=== PATIENT | female | born 2000 | race Caucasian/White ===

== ENCOUNTER 2020-03-20 08:56 | Outpatient (REF) | payer OTHER, SELFPAY | END 2020-03-20 08:57 | disposition home or self-care (01) | LOC: HO.SCI 08:56 | DX: Z13.89 Encounter for screening for other disorder (principal) ==

== ENCOUNTER 2020-03-25 13:01 | Outpatient (REF) | payer BC, SELFPAY ==
--- NOTE | 2020-03-25 13:07 | US_ITS ---
EXAMINATION: US PELVIS CLINICAL INFORMATION: Pelvic pain. COMPARISON: None TECHNIQUE: Ultrasound of the pelvis is performed using both transabdominal and transvaginal transducers along with Doppler. Unable to perform transvaginal ultrasound due to patient's young age. FINDINGS: Uterus: The uterus is anteverted and measures 8.0 cm in length, 3.8 cm in AP and 4.9 cm in transverse dimension. There is lobulation visualized in the fundal region suspicious for a bicornuate or arcuate uterus. The double wall endometrial thickness is 0.93 cm. The uterus is smooth in contour and has normal myometrial echogenicity. No visible fibroid. Adnexa: Both ovaries are visualized. There is normal color flow to the adnexa. There is no ovarian torsion. There is no pelvic ascites or fluid collection. Right ovary measures 4.0 x 2.1 x 2.0 cm and volume 8.4 mL. It appears unremarkable. Left ovary is not visualized. There is no free fluid in the cul-de-sac. 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 The right ovary is unremarkable. The left ovary is not seen.
== END 2020-03-25 13:02 | disposition home or self-care (01) ==
LOC: HO.US 13:01
PROVIDERS: PCP Pediatrics; Visit Provider Obstetrics & Gynecology Gynecology
DX: R10.2 Pelvic and perineal pain (principal)
CPT/HCPCS: 76856

== ENCOUNTER 2021-01-19 14:22 | Emergency (ER) | payer BC, SELFPAY ==
--- NOTE | ~2021-01-19 | CT_ITS ---
EXAMINATION: CT ABDOMEN AND PELVIS WITH CONTRAST CLINICAL INFORMATION: Right lower quadrant pain COMPARISON: Previous pelvic ultrasound March 2020 TECHNIQUE: Multidetector volumetric images were obtained from the superior aspect of the liver through the pubic symphysis following administration 85 mL of Omnipaque 350 intravenous contrast. Sagittal and coronal reformatted images were obtained on the technologist's workstation. Oral contrast: Yes This CT examination was performed using dose optimization techniques as appropriate, variously including the following: *Automated exposure control *Adjustment of mA and/or kV according to patient size (this includes techniques or standardized protocols for targeted exams where dose is matched to indication/reason for exam; i.e. extremities or head) *Use of iterative reconstruction technique DLP: 289 mGy-cm FINDINGS: LUNG BASES: The visualized lung bases are unremarkable. LIVER, GALLBLADDER, AND BILIARY TREE: The liver is normal in size, shape, and attenuation. No focal hepatic lesion or biliary ductal dilatation is present. The gallbladder is unremarkable with no evidence of radiopaque gallstones, gallbladder wall thickening, or obvious pericholecystic inflammatory changes. PANCREAS: Unremarkable. SPLEEN: Unremarkable. ADRENAL GLANDS: Unremarkable. KIDNEYS AND URETERS: The kidneys are normal in size, shape, and attenuation. No hydronephrosis, hydroureter, or calculi seen. There is question of peripelvic cysts in the upper pole the left kidney versus upper pole calyceal dilatation. BLADDER: Unremarkable. GASTROINTESTINAL TRACT: There is stool throughout the colon suggestive of mild constipation. There is question of mild wall thickening of the distal colon and rectum or proctocolitis. Small and large bowel is otherwise unremarkable. The appendix is unremarkable. ABDOMINAL WALL: No significant hernia is appreciated. LYMPH NODES: Normal. VASCULAR: Unremarkable. PELVIC VISCERA: Unremarkable. OSSEOUS STRUCTURES: Unremarkable. CT/CT abdomen pelvis w con IMPRESSION: Mild constipation. Question mild wall thickening of the distal colon and rectum/proctocolitis. Left renal peripelvic cysts versus calyceal dilatation. Fleischner guidelines were followed.
[2021-01-19 15:12] VITALS: BP 115/73; PULSE 89; RESP 18; TEMP 36.5; O2SAT 98; BMI 16.9
[2021-01-19 16:30] LABS: MANUAL DIFF FLAG NO
[2021-01-19 16:33] LABS: Basophils Percent Auto 0.3 % (0-2); Eosinophils Absolute Auto 0.1 X10*3/uL (0.0-0.4); Eosinophils Percent Auto 0.7 % (0-4); Hematocrit 37.2 % (37.0-47.0); Hemoglobin 12.2 g/dl (12.0-16.0); Imm Gran Abs Auto 0.03 X10*3/uL (0.00-0.03); Imm Gran Pct Auto 0.3 % (0.0-0.4); Lymphocytes Absolute Auto 2.4 X10*3/uL (1.2-4.9); Lymphocytes Percent Auto 25.7 % (20-40); Mean Corpuscular HGB Conc 32.8 g/dl (31.0-35.0); Mean Corpuscular Hemoglobin 31.2 pg (27.0-33.0); Mean Corpuscular Volume 95.1 fL (80.0-98.0); Mean Platelet Volume 10.8 fL (9.4-12.3); Monocytes Absolute Auto 0.7 X10*3/uL (0.1-1.2); Monocytes Percent Auto 7.1 % (2-11); Neutrophils Percent Auto 65.9 % (45-73); Platelet Count 283 X10*3/uL (160-400); Red Blood Count 3.91 X10*6/uL (4.20-5.50); Red Cell Distribution Width 12.6 % (11.0-16.0); White Blood Count 9.2 X10*3/uL (4.8-10.8)
[2021-01-19 16:48] LABS: Appearance Urine CLOUDY; Color Urine YELLOW; Glucose Urine UA NEG (NEG); Leukocyte Esterase Urine 3+ (NEG); Nitrite Urine NEG (NEG); Specific Gravity - Urine 1.015 (1.005-1.025); UACC Culture Trigger YES; Urine Blood NEG (NEG); Urine Ketones NEG (NEG); Urine Protein NEG (NEG-TRACE)
[2021-01-19 16:49] LABS: UPreg QC Valid YES; Urine Pregnancy NEGATIVE (NEGATIVE)
--- NOTE | 2021-01-19 16:53 | ED_ITS ---
HPI - Abdominal Pain General Chief Complaint: Abdominal Pain Stated Complaint: abd pain Time Seen by Provider: 01/19/21 16:12 Source: patient, family and old records reviewed History of Present Illness HPI narrative: Lower abd pain since yesterday, getting progressively worse. Diarrhea yesterday Pain greatest in RLQ. Rad to back Hx of dysmenorrhea. Remote history of frequent UTI's as a child/ adolescent Nausea, no vomiting LMP 1 week ago. No recent changes in diet/activity OCP for dysmenorrhea Related Data Previous Rx's Medication Instructions Recorded amoxicillin 250 mg-potassium 10 ml PO BID #200 ml 01/19/21 clavulanate 62.5 mg/5 mL oral suspension (Augmentin) Allergies Allergy/AdvReac Type Severity Reaction Status Date / Time No Known Allergies Allergy Verified 01/19/21 15:12 Review of Systems Constitutional: Denies fever(s), Denies malaise and Denies weakness Cardiovascular: Denies chest pain and Denies dyspnea Respiratory: Denies cough and Denies dyspnea Gastrointestinal: Reports as per HPI, Denies heartburn, Reports diarrhea, Reports nausea and Denies vomiting Genitourinary: Denies difficulty voiding, Denies dysuria and Denies flank pain Comments: low back pain Comments: no rash Denies weakness Physical Exam Vital Signs: Vital Signs: Last Vital Signs Temp 97.4 F 01/19/21 19:16 Pulse 83 01/19/21 19:16 Resp 15 01/19/21 19:16 BP 105/70 01/19/21 19:16 Pulse Ox 99 01/19/21 19:16 Body Mass Index 16.9 Const: General: cooperative and awake; No acute distress Orientation/consciousness: patient oriented x3 Resp: Effort & Inspection: normal respiratory effort and no cough GI: Other: TTP across low abd, greatest RLQ, No G/R Skin: Other: W/P/D Neuro: General: patient oriented x3 Cranial nerves: Yes CN's II-XII intact bilaterally Course Course Course Narrative: Appendicitis UTI Ov Cyst Abd Pain CBC normal WBC UA 3+ leuk 5:23 PM UA micro shows 5-9 WBC's, 1+ bacteria. Not a def UTI. Will order CT, R/O Appendicitis 9:[address] scan shows constipation with question of colonic wall thickening but no obvious appendicitis or other acute abnormality such as abscess. Will start on Augmentin p.o. discharge hold MDM - Abdominal Pain Lab Data Result diagrams: 01/19/21 16:25 01/19/21 16:25 Labs: Lab Results 01/19/21 01/19/21 01/19/21 Range/Units 16:05 16:05 16:25 WBC 9.2 (4.8-10.8) X10*3/uL RBC 3.91 L (4.20-5.50) X10*6/uL Hgb 12.2 (12.0-16.0) g/dl Hct 37.2 (37.0-47.0) % MCV 95.1 (80.0-98.0) fL MCH 31.2 (27.0-33.0) pg MCHC 32.8 (31.0-35.0) g/dl RDW 12.6 (11.0-16.0) % Plt Count 283 (160-400) X10*3/uL MPV 10.8 (9.4-12.3) fL Immature Gran % (Auto) 0.3 (0.0-0.4) % Neut % (Auto) 65.9 (45-73) % Lymph % (Auto) 25.7 (20-40) % [place] % (Auto) 7.1 (2-11) % Eos % (Auto) 0.7 (0-4) % Baso % (Auto) 0.3 (0-2) % Lymph # (Auto) 2.4 (1.2-4.9) X10*3/uL [place] # (Auto) 0.7 (0.1-1.2) X10*3/uL Eos # (Auto) 0.1 (0.0-0.4) X10*3/uL Baso # (Auto) 0.0 (0.0-0.2) X10*3/uL Abs Immat Gran (auto) 0.03 (0.00-0.03) X10*3/uL Absolute Neuts (auto) 6.0 (2.0-8.3) x10*3/uL Absolute Nucleated RBC 0.000 (0.0-0.012) X10*3/uL Nucleated RBC % (auto) 0.0 (0.0-0.2) /100WBC Sodium (135-145) mmol/L Potassium (3.3-5.1) mmol/L Chloride (96-108) mmol/L Carbon Dioxide (22-29) mmol/L Anion Gap (12-20) BUN (9-16) mg/dL Creatinine (0.5-1.4) mg/dL Estim Creat Clear Calc Estimated GFR Random Glucose (60-115) mg/dL Calcium (8.4-10.2) mg/dL Total Bilirubin (0.0-1.0) mg/dL AST (5-31) U/L ALT (0-31) U/L Alkaline Phosphatase (39-117) U/L Total Protein (6.5-8.0) g/dL Albumin (3.5-5.0) g/dL Urine Color YELLOW Urine Appearance CLOUDY Urine pH 6.0 (5.0-8.0) Ur Specific [place] 1.015 (1.005-1.025) Urine Protein NEG (NEG-TRACE) MG/DL Urine Glucose (UA) NEG (NEG) MG/DL Urine Ketones NEG (NEG) MG/DL Urine Blood NEG (NEG) Urine Nitrite NEG (NEG) Ur Leukocyte Esterase 3+ H (NEG) Urine RBC 0-2 (0) /HPF Urine WBC 5-9 H (0-4) /HPF Ur Squamous Epith Cells 2+ /LPF Urine Bacteria 1+ /LPF Urine Test NEGATIVE (NEGATIVE) 01/19/21 Range/Units 16:25 WBC (4.8-10.8) X10*3/uL RBC (4.20-5.50) X10*6/uL Hgb (12.0-16.0) g/dl Hct (37.0-47.0) % MCV (80.0-98.0) fL MCH (27.0-33.0) pg MCHC (31.0-35.0) g/dl RDW (11.0-16.0) % Plt Count (160-400) X10*3/uL MPV (9.4-12.3) fL Immature Gran % (Auto) (0.0-0.4) % Neut % (Auto) (45-73) % Lymph % (Auto) (20-40) % [place] % (Auto) (2-11) % Eos % (Auto) (0-4) % Baso % (Auto) (0-2) % Lymph # (Auto) (1.2-4.9) X10*3/uL [place] # (Auto) (0.1-1.2) X10*3/uL Eos # (Auto) (0.0-0.4) X10*3/uL Baso # (Auto) (0.0-0.2) X10*3/uL Abs Immat Gran (auto) (0.00-0.03) X10*3/uL Absolute Neuts (auto) (2.0-8.3) x10*3/uL Absolute Nucleated RBC (0.0-0.012) X10*3/uL Nucleated RBC % (auto) (0.0-0.2) /100WBC Sodium 138 (135-145) mmol/L Potassium 4.3 (3.3-5.1) mmol/L Chloride 109 H (96-108) mmol/L Carbon Dioxide 20 L (22-29) mmol/L Anion Gap 13 (12-20) BUN 4 L (9-16) mg/dL Creatinine 0.65 (0.5-1.4) mg/dL Estim Creat Clear Calc 88.9 Estimated GFR > 60 Random Glucose 83 (60-115) mg/dL Calcium 8.8 (8.4-10.2) mg/dL Total Bilirubin 0.7 (0.0-1.0) mg/dL AST 17 (5-31) U/L ALT 14 (0-31) U/L Alkaline Phosphatase 103 (39-117) U/L Total Protein 7.1 (6.5-8.0) g/dL Albumin 3.9 (3.5-5.0) g/dL Urine Color Urine Appearance Urine pH (5.0-8.0) Ur Specific [place] (1.005-1.025) Urine Protein (NEG-TRACE) MG/DL Urine Glucose (UA) (NEG) MG/DL Urine Ketones (NEG) MG/DL Urine Blood (NEG) Urine Nitrite (NEG) Ur Leukocyte Esterase (NEG) Urine RBC (0) /HPF Urine WBC (0-4) /HPF Ur Squamous Epith Cells /LPF Urine Bacteria /LPF Urine Test (NEGATIVE) Discharge Plan Discharge Clinical Impression: Colitis Constipation Qualifiers: Constipation type: unspecified constipation type Qualified Code(s): K59.00 - Constipation, unspecified Patient Disposition: Home, Self-Care Instructions: Constipation (ED), Colitis (ED) Prescriptions: New amoxicillin-pot clavulanate [Augmentin] 250-62.5 mg/5 mL suspension for reconstitution 10 ml PO BID Qty: 200 RF: 0 PMFSH Past Medical History Medical History (Updated 01/19/21 @ 21:11 by Cooper No MD) Autism Social History Social History Alcohol intake: never Patient Tobacco Use Status: Never used Tobacco Use of substances other than those prescribed or required for medical reasons: No Advance Directives: No Advance Directives Information Provided: Yes Patient : No
[2021-01-19 16:54] LABS: Alanine Aminotransferase 14 U/L (0-31); Albumin Level 3.9 g/dL (3.5-5.0); Alkaline Phosphatase 103 U/L (39-117); Anion Gap 13 (12-20); Aspartate Amino Transferase 17 U/L (5-31); Bilirubin Total 0.7 mg/dL (0.0-1.0); Blood Urea Nitrogen 4 mg/dL (9-16); Calcium 8.8 mg/dL (8.4-10.2); Carbon Dioxide 20 mmol/L (22-29); Chloride 109 mmol/L (96-108); Creatinine Clr Calc Pharmacy 88.9; Estimated Glomerular Filt Rate > 60; Glucose Random 83 mg/dL (60-115); Potassium 4.3 mmol/L (3.3-5.1); Sodium 138 mmol/L (135-145); Total Protein 7.1 g/dL (6.5-8.0)
[2021-01-19 17:05] LABS: Bacteria Urine 1+ /LPF; RBC Urine 0-2 /HPF (0); Squamous Epithelial Cell Urine 2+ /LPF
[2021-01-19 19:16] VITALS: BP 105/70; PULSE 83; RESP 15; TEMP 36.3; O2SAT 99
[2021-01-19] MEDS: iohexoL 350 MG/ML 100 ML INFUS..BTL IV (20:02)
== END 2021-01-19 21:32 | disposition home or self-care (01) ==
PROVIDERS: Emergency Provider Emergency Medicine; PCP Pediatrics
DX: K52.9 Noninfective gastroenteritis and colitis, unspecified (principal); K59.00 Constipation, unspecified; M54.50 Low back pain, unspecified; Z79.899 Other long term (current) drug therapy
CPT/HCPCS: 36415; 74177; 80053; 81001; 81025; 85025; 87086; 99284; Q9967

== ENCOUNTER → 2021-03-17 11:26 | Outpatient (BNVA) | payer BC, SELFPAY | PROVIDERS: PCP Pediatrics; Visit Provider Internal Medicine Gastroenterology ==

== ENCOUNTER 2021-07-22 07:54 | Day surgery (SDC) | payer OTHER, SELFPAY ==
--- NOTE | 2021-07-21 10:54 | P.CONAN_ITS ---
Documented by User: Jayne Whaley NP 07/21/21 10:54 HPI - Anesthesia Eval Consult details Narrative: 20yo F for Colonoscopy [facility] Past Medical History Medical History (Updated 07/22/21 @ 09:18 by Minal Pereira, NOMAN) Autism Cerebral hemorrhage Hx of premature delivery Family History Family History (Updated 03/17/21 @ 11:38 by JOSE J Man) Maternal Grandfather HTN (hypertension) Prostate cancer Colon polyp Maternal Grandmother Colon cancer Paternal Grandfather Type 2 diabetes mellitus Alzheimer disease Maternal Grandmother Lung cancer HTN (hypertension) Breast cancer Mother Hodgkins lymphoma Father Type 2 diabetes mellitus HTN (hypertension) Surgical History Surgical History Hx of eye surgery Social History Social History Alcohol intake: never Patient Tobacco Use Status: Never used Tobacco Use of substances other than those prescribed or required for medical reasons: No Are you DNR?: No Advance Directives: No Advance Directives Information Provided: Yes Meds Allergies Allergy/AdvReac Type Severity Reaction Status Date / Time No Known Allergies Allergy Verified 01/19/21 15:12 Exam Exam Date and Time: July 21, 2021 1054 Assessment and Plan Assessment Anesthesia Assessment: Chart Reviewed Documented by User: Ismael Ivy MD 07/22/21 10:01 [facility] Past Medical History Medical History (Updated 07/22/21 @ 09:18 by Minal Pereira RN) Autism Cerebral hemorrhage Hx of premature delivery Family History Family History (Updated 03/17/21 @ 11:38 by JOSE J Man) Maternal Grandfather HTN (hypertension) Prostate cancer Colon polyp Maternal Grandmother Colon cancer Paternal Grandfather Type 2 diabetes mellitus Alzheimer disease Maternal Grandmother Lung cancer HTN (hypertension) Breast cancer Mother Hodgkins lymphoma Father Type 2 diabetes mellitus HTN (hypertension) Family history of problems with anesthesia: No Surgical History Surgical History Hx of eye surgery History of Problems with Anesthesia: No Social History Social History Alcohol intake: never Patient Tobacco Use Status: Never used Tobacco Use of substances other than those prescribed or required for medical reasons: No Are you DNR?: No Advance Directives: No Advance Directives Information Provided: Yes Meds Allergies Allergy/AdvReac Type Severity Reaction Status Date / Time No Known Allergies Allergy Verified 01/19/21 15:12 Exam Airway Mallampati Class: II TM Dist: >3cm Neck ROM: Full Loose/Missing/Broken Teeth: No Assessment and Plan Assessment Anesthesia Assessment: Anesthesia Plan Discussed Final Anesthetic Review Family History of Problems with Anesthesia: No History of Problems with Anesthesia: No NPO: Yes ASA Class: II Final Preanesthetic Review: No Changes in Pt Med Stat, Meds/Allgs Chart Rev iewed, Consent Obtained/Reviewed and Anes Risks/Benef Reviewed Patient Risk: Low Procedure Risk: Low Anesthetic Plan Anesthetic Plan: MAC: Disposition: Standard PACU
[2021-07-22 09:09] VITALS: BMI 17.9
--- NOTE | 2021-07-22 09:12 | MHC.SHP ---
Pre-Procedural Eval Section A Date of Service: 07/22/21 Section B Chief Complaint: Constipation, Details of Present Illness: CT with thickening of colon, on the left side of colon and rectum, abdominal pain Relevant Family History (Specify if Yes): Yes Relevant Social History: None Present Medications: see Short Stay Collaborative assessment Medical History: Significant History (Autism Cerebral hemorrhage Hx of premature delivery) History of Previous Operations: No relevant previous surgery Allergies: Allergies Allergy/AdvReac Type Severity Reaction Status Date / Time No Known Allergies Allergy Verified 01/19/21 15:12 Review of Systems Sugical H&P ROS: Negative: Constitution, Cardiovascular, Respiratory, Neurological, Psychiatric, Hem-Onc, Allergic/Immunologic, Gastrointestinal, Genitourinary, Musculoskeletal, Integumentary, Endocrine and Eyes/Ears/Nose/Throat Exam Surgical H&P Exam: Normal: HEENT, Normal: Heart, Normal: Lungs, Normal: Extremities, Normal: Abdomen, Normal: Skin and Normal: Neurological Plan Diagnosis/Plan: Unchanged I have reviewed the history and physical and performed a pertinent physical examination on my patient. No changes have occurred unless specified.
--- NOTE | 2021-07-22 09:13 | PM.OP ---
Brief Operative Note Date of Service: 07/22/21 Pre-op diagnosis: CT with thickening of colon, on the left side of colon and rectum, abdominal pain Post-op diagnosis: same Procedure: see op note Surgeon: Nathan Cleaning MD Anesthesia: MAC Was an Nurse Gynecology used for this Procedure?: No Estimated blood loss (mL): 0 Condition: stable Disposition: PACU
--- NOTE | 2021-07-22 09:13 | W.PM.OPN ---
Operative Note Operative Note Date of Service: 07/22/21 Narrative: Operative Information Procedure Description: Colonoscopy Indication: CT with thickening of colon, on the left side of colon and rectum, abdominal pain Anesthesia: MAC COLONOSCOPY Instrument: Olympus variable stiffness ADULT scope 190L Colonoscopy Monitoring: Vital signs and clinical assessment, continuous EKG monitoring, Pulse oximetry, Carbon Dioxide monitoring and blood pressure monitoring were done throughout the procedure. Colon withdrawal time was 16 minutes. Procedure: The patient was placed in the left lateral decubitis position and pre-procedure medications were administered. After a digital rectal examination of the ano-rectum, the video colonoscope was inserted into the rectum and advanced through the colon to the cecum/TI. The colonoscope was slowly withdrawn in a retrograde panoramic fashion and the colon mucosa was carefully examined including a retroflexed view of the rectum. Findings and interventions are described below. Procedure Difficulty: easy Findings: Terminal Ileum-normal Cecum:normal Ascending Colon: normal Transverse Colon -normal Descending Colon:normal Sigmoid Colon: normal Rectum: Retroflexion with small internal hemorrhoids, grade I Anorectum - normal Colon preparation: [place] Bowel Preparation Scale Right colon; 2 Transverse colon: 2 Left colon; 2 (extensive washing was required) (0 = Unprepared colon segment with mucosa not seen due to solid stool that cannot be cleared. 1 = Portion of mucosa of the colon segment seen, but other areas of the colon segment not well seen due to staining, residual stool and/or opaque liquid. 2 = Minor amount of residual staining, small fragments of stool and/or opaque liquid, but mucosa of colon segment seen well. 3 = Entire mucosa of colon segment seen well with no residual staining, small fragments of stool or opaque liquid) Impression and Post Procedure Diagnosis: internal hemorrhoids, small Plan: High fiber diet leaflet Avoid straining at stool, epsom salts and sitz bath, anusol supps or cream Repeat Colonoscopy aged 45 years or earlier if clinically indicated The abnormal thickening on Ct was likely due to constipation, she has been well since being on miralax per mother so can continue Above findings were reviewed with the patient and relevant handouts were provided if indicated.
[2021-07-22 09:16] LABS: UPreg QC Valid YES
[2021-07-22 09:17] LABS: Urine Pregnancy NEGATIVE (NEGATIVE)
[2021-07-22] MEDS: Lactated Ringers 1,000 ML 100 ML IVCONT (09:42)
[2021-07-22 09:44] VITALS: BP 126/87; PULSE 90; RESP 17; TEMP 37.5; O2SAT 98
[2021-07-22 10:51] VITALS: BP 107/70; PULSE 85; RESP 16; TEMP 36.8; O2SAT 100
[2021-07-22 11:09] VITALS: BP 117/72; PULSE 76; RESP 18; TEMP 36.9; O2SAT 100
== END 2021-07-22 11:33 | disposition home or self-care (01) ==
PROVIDERS: Nurse Practitioner; PCP Pediatrics; Visit Provider Internal Medicine Gastroenterology
PROC: 0DJD8ZZ Inspection of Lower Intestinal Tract, Via Natural or Artificial Opening Endoscopic (ICD-10-PCS; CPT 45378; principal; 2021-07-22 10:10)
DX: K63.89 Other specified diseases of intestine (principal); K59.00 Constipation, unspecified; R10.30 Lower abdominal pain, unspecified; K64.0 First degree hemorrhoids; F84.0 Autistic disorder; F41.1 Generalized anxiety disorder
CPT/HCPCS: 45378; 81025; J3010

== ENCOUNTER 2022-11-16 12:52 | Outpatient (AMB) | payer OTHER, SELFPAY ==
--- NOTE | 2022-11-16 12:53 | A.OFFPC_ITS ---
Vital Signs 11/16/22 12:56 Height 5 ft 1 in Weight 134 lb 4 oz BMI 25.4 BP 112/72 Blood Pressure Location Lt brachial Position Sitting Pulse 87 Pulse Source Pulse Oximeter Pulse Oximetry (%) 97 Oxygen Delivery Method Room Air Intake Visit Reasons: Established care Intake Note: Patient is a new patient here to establish care for Bilateral bleeding, Mild CP, Autistic. Transferring care from DR Arlene Chen ([facility]). Medical records have been requested and have received. Travel Agent Required: No Army Helicopter Pilot: Present Accompanied by: Mother Allergies No Known Allergies Allergy (Verified 11/16/22 12:55) Tobacco use date assessed: 11/16/22 Dental Screening Dental Screen Date: 11/16/22 Did you have a dental visit in the last 12 months?: Yes Did you have a dental problem in the last 6 months where you did not have access to dental care?: No Was dental information given to patient?: Patient has dentist HPI HPI Comments History of Present Illness Details 22-year [facility]. Past medical history significant for Cerebral palsy,diplegic,autism,anxiety and depression. Previous patient of [facility]. Patient presents today with her mother. Patient's mother reports that patient makes her medical decisions she is able to sign for self and her mother also can sign for her if needed. Patient currently follow with Dr. Tiwari for psychiatry stable on sertraline. Denies SI and HI. Patient denies any acute concerns. Patient's mother reports she is going to be in the process of completing SSI forms for daughter, instructed to call opffice for form appointment to review provider portion with her. Dr. 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 Patient currently on control and has regular menstrual cycles. Mother reports patient has menses now. Eye exam: Patient has an upcoming appointment in 2 weeks. offered routine labs, mother does not feel like it is necessary at this time which I agree. [facility] Medical History (Updated 11/16/22 @ 13:17 by JUAN A Robertson) Depression Cerebral hemorrhage Hx of premature delivery Autism Surgical History (Updated 11/16/22 @ 13:17 by JUAN A Robertson) Hx of eye surgery Family History Maternal Grandfather HTN (hypertension) Prostate cancer Colon polyp Maternal Grandmother Colon cancer Paternal Grandfather Type 2 diabetes mellitus Alzheimer disease Maternal Grandmother Lung cancer HTN (hypertension) Breast cancer Mother Hodgkins lymphoma Father Type 2 diabetes mellitus HTN (hypertension) Other Mental health disorder Social History Housing: House Alcohol intake: never Patient Tobacco Use Status: Never used Tobacco e-Cigarette/Vaping Use: Never Used Second Hand Smoke Exposure: No service: No Current occupational status: disabled Cognitive needs: No Hearing needs: No Vision needs: Yes (Glasses) Questionnaire PHQ-9 Over the last 2 weeks, how often have you been bothered by any of the following problems? 1. Little interest or pleasure in doing things: not at all 2. Feeling down, depressed, or hopeless: not at all (currently under treatment) 3. Trouble falling or staying asleep, or sleeping too much: not at all 4. Feeling tired or having little energy: not at all 5. Poor appetite or overeating: not at all 6. Feeling bad about yourself - or that you are a failure or have let yourself or your family down: not at all 7. Trouble concentrating on things, such as reading the newspaper or watching television: not at all 8. Moving or speaking so slowly that other people could have noticed. Or the opposite - being so fidgety or restless that you have been moving around a lot more than usual: not at all 9. Thoughts that you would be better off or of hurting yourself in some way: not at all Total score: 0 Depression Screening Interpretation: Negative 39433 - PHQ-9 Billing: Yes Source: Developed by Drs. Timo Flynn, Jenelle Galloway, Aravind Matson and colleagues, with an educational nirmala from [employer]. Thrive Questionnaire Date Thrive assessed: 11/16/22 I am a: Patient What is your living situation today?: I have a steady place to live Within the past 12 months, did the food you bought not last and you didn't have the money to get more?: Never true Within the past 12 months, did you worry whether your food would run out before you got money to buy more?: Never true Do you have trouble paying for medicines?: No Do you have trouble getting transportation to medical appointments?: No Do you have trouble paying your heating and electricity bill?: No Do you have trouble taking care of your child, family member or friend?: No Do you have trouble with day-to-day activities such as bathing, preparing meals, shopping, managing finances, etc.?: No Are you currently unemployed and looking for a job?: No Are you interested in more education?: No Currently or been in a relationship where the following occur: no concerns reported AUDIT C Alcohol Use Questionnaire (AUDIT-C) 1. How often do you have a drink containing alcohol?: Never Total Score: 0 HOMERO-7 AMB Questionnaire HOMERO-7 Date HOMERO - 7 assessed: 11/16/22 Feeling nervous, anxious, or on edge: 0 = Not at all (currently under treatment) Not being able to stop or control worryin = Not at all Worrying too much about different things: 0 = Not at all Trouble relaxin = Not at all Being so restless that it is hard to sit still: 0 = Not at all Becoming easily annoyed or irritable: 0 = Not at all Feeling afraid as if something awful might happen: 0 = Not at all Total HOMERO-7 score (0-4 normal; 5-9 mild; 10-14 moderate; 15-21 severe): 0 Source: Developed by Drs. Timo Flynn, Jenelle Galloway, Aravind Matson and colleagues, with an educational nirmala from [employer]. HOMERO-7 Assessment Billing HOMERO-7 Assessment Tool: HOMERO-7 Assessment 72759 Review of Systems Const Denies chills, Denies fatigue, Denies fever(s) and Denies poor appetite Eyes Denies no additional complaints ENT Reports Normal hearing present Card Denies chest pain, Denies syncope, Denies rapid heart rate and Denies dyspnea Resp Denies cough and Denies dyspnea GI Denies change in stool character, Denies constipation, Denies diarrhea, Denies nausea and Denies vomiting Denies urinary frequency, Denies dysuria and Denies urinary urgency Neuro Reports Normal hearing present, Denies confusion and Denies syncope Psych Denies confusion Endo Denies fatigue Physical exam (Primary Care) Vital Signs: Last Vital Signs Pulse 87 11/16/22 12:56 BP 112/72 11/16/22 12:56 Pulse Ox 97 11/16/22 12:56 Oxygen Delivery Method Room Air 11/16/22 12:56 BMI result Body Mass Index 25.4 Tobacco/Smoking Status: Tobacco use Status Tobacco use date assessed 11/16/22 11/16/22 12:56 Patient Tobacco Use Status Never used Tobacco 11/16/22 12:56 e-Cigarette/Vaping Use Never Used 11/16/22 12:56 PHQ-9: PHQ-9 Score PHQ-9: Total score 0 11/16/22 13:08 Depression Screening Interpretation: Negative Thrive Assessment: Date of Thrive Assessment Date Thrive assessed 11/16/22 11/16/22 12:56 Currently or been in a relationship where the following occur: no concerns reported Const General: No confusion Orientation/consciousness: No confusion HENMT Head: Yes normocephalic and Yes atraumatic Ears: external ears normal and TM's normal bilaterally General nose exam: Normal external nose present and Normal nasal mucous membranes and turbinates present Face and sinus: Yes normal facial exam and Yes sinuses nontender Mouth: moist mucous membranes Throat: Yes tonsils normal Eyes Conjunctivae: conjunctivae normal Sclerae: sclerae normal Pupils: Equal, round and reactive pupils present and Pupils normal by confrontation EOM: EOMs intact bilaterally Direct Ophthalmoscopy: normal light reflex Neck Neck: Yes no lymphadenopathy and Yes supple Thyroid: Thyroid normal Chest Chest palpation & inspection: normal inspection of the chest Resp Effort & Inspection: normal respiratory effort Auscultation: clear to auscultation bilaterally, no crackles, no rhonchi and no wheezes Cardio Rate: regular rate Rhythm: regular rhythm Peripheral pulses: radial pulses present and dorsalis pedis present GI Inspection: Yes normal to inspection Palpation (GI): Soft to palpation, nontender and No hepatosplenomegaly present Auscultation: normoactive bowel sounds Skin General skin exam: no rashes or lesions noted Neuro General: No confusion Cranial nerves: Yes Equal, round and reactive pupils present and Yes Normal hearing present Cognition (Neuro): normal cognition Gait exam (Neuro): Normal gait present Motor exam (neuro): 5/5 motor strength present throughout Deep tendon reflexes (DTR's): Right brachioradialis reflex intensity grade: 2+, Left brachioradialis reflex intensity grade: 2+, Right patellar reflex intensity grade: 2+ and Left patellar reflex intensity grade: 2+ Extrem General: No edema Assessment and Plan Assessment & Plan (1) Anxiety: Code(s): F41.9 - Anxiety disorder, unspecified Plan: Continue on sertraline. Continue follow with psychiatrist. (2) Cerebral palsy: Code(s): G80.9 - Cerebral palsy, unspecified (3) Physical exam, annual: Code(s): Z00.00 - Encounter for general adult medical examination without abnormal findings Plan: Follow-up in 1 year sooner if needed. Plan Follow-up in 1 year for repeat physical exam Coding Level of Care Code New Pt Prev Care 18-39yr([id number] Diagnoses Anxiety F41.9 Cerebral palsy G80.9 Physical exam, annual Z00.00 Additional Codes HOMERO-7 Assessment Billing - HOMERO-7 Assessment Tool: HOMERO-7 Assessment 93248 ([id number])
[2022-11-16 12:56] VITALS: BP 112/72; PULSE 87; O2SAT 97; BMI 25.4
== END 2022-11-16 13:32 | disposition home or self-care (01) ==
PROVIDERS: PCP Pediatrics; Visit Provider Nurse Practitioner Family
DX: Z00.00 Encounter for general adult medical examination without abnormal findings (principal); F41.9 Anxiety disorder, unspecified; G80.9 Cerebral palsy, unspecified
CPT/HCPCS: 99385

== ENCOUNTER 2023-11-22 13:21 | Outpatient (REF) | payer BC, SELFPAY ==
[2023-11-22 14:42] LABS: MANUAL DIFF FLAG NO
[2023-11-22 15:31] LABS: Basophils Absolute Auto 0.1 X10*3/uL (0.0-0.2); Basophils Percent Auto 0.4 % (0-2); Eosinophils Absolute Auto 0.1 X10*3/uL (0.0-0.4); Eosinophils Percent Auto 0.8 % (0-4); Hematocrit 37.9 % (37.0-47.0); Hemoglobin 13.2 g/dl (12.0-16.0); Imm Gran Abs Auto 0.03 X10*3/uL (0.00-0.03); Imm Gran Pct Auto 0.2 % (0.0-0.4); Lymphocytes Absolute Auto 2.6 X10*3/uL (1.2-4.9); Mean Corpuscular HGB Conc 34.8 g/dl (31.0-35.0); Mean Corpuscular Hemoglobin 38.3 pg (27.0-33.0); Mean Corpuscular Volume 109.9 fL (80.0-98.0); Mean Platelet Volume 10.6 fL (9.4-12.3); Monocytes Absolute Auto 0.7 X10*3/uL (0.1-1.2); Monocytes Percent Auto 5.5 % (2-11); Neutrophils Absolute Auto 9.5 x10*3/uL (2.0-8.3); Neutrophils Percent Auto 73.1 % (45-73); Platelet Count 377 X10*3/uL (160-400); Red Blood Count 3.45 X10*6/uL (4.20-5.50); Red Cell Distribution Width 14.8 % (11.0-16.0)
[2023-11-22 16:29] LABS: Alanine Aminotransferase 10 U/L (0-31); Albumin Level 3.9 g/dL (3.5-5.0); Alkaline Phosphatase 142 U/L (39-117); Anion Gap 14 (12-20); Aspartate Amino Transferase 21 U/L (5-31); Bilirubin Total 0.5 mg/dL (0.0-1.0); Blood Urea Nitrogen 8 mg/dL (9-16); Calcium 9.1 mg/dL (8.4-10.2); Carbon Dioxide 22 mmol/L (22-29); Chloride 108 mmol/L (96-108); Estimated Glomerular Filt Rate > 60; Glucose Random 91 mg/dL (60-115); Potassium 4.1 mmol/L (3.3-5.1); Sodium 140 mmol/L (135-145); Total Protein 7.3 g/dL (6.5-8.0)
[2023-11-22 16:44] LABS: Free T4 (Free Thyroxine) 0.76 ng/dL (0.71-1.85); TSH reflex Free T4 1.29 uIU/mL (0.32-4.0)
[2023-11-22 16:59] LABS: Folate 13.3 ng/mL (> or = 4.0); Vitamin B12 < 148 pg/mL (200-900)
[2023-11-27 15:34] LABS: Vitamin D 25-OH, D2 <4 ng/mL; Vitamin D 25-OH, D3 19 ng/mL; Vitamin D 25-OH, Total 19 ng/mL (30-100)
== END 2023-11-22 13:22 | disposition home or self-care (01) ==
LOC: HO.LAB 13:21
DX: Z00.01 Encounter for general adult medical examination with abnormal findings (principal); H61.23 Impacted cerumen, bilateral; F41.9 Anxiety disorder, unspecified; G80.9 Cerebral palsy, unspecified; R41.3 Other amnesia; G47.00 Insomnia, unspecified
CPT/HCPCS: 36415; 69210; 80053; 82306; 82607; 82746; 84439; 84443; 85025; 96127

== ENCOUNTER 2023-11-22 13:21 | Outpatient (AMB) | payer BC, SELFPAY ==
[2023-11-22 13:22] VITALS: BP 114/72; PULSE 92; BMI 27.6
--- NOTE | 2023-11-22 13:22 | A.OFFPC_ITS ---
Vital Signs 11/22/23 13:22 Height 5 ft 1 in Weight 146 lb BMI 27.6 BP 114/72 Blood Pressure Location Lt brachial Position Sitting Pulse 92 Pulse Source Pulse Oximeter Oxygen Delivery Method Room Air Intake Visit Reasons: SHARON Ashford patient/PE Training And Quality Manager Required: No Accompanied by: Mother Allergies No Known Allergies Allergy (Verified 11/22/23 13:42) Medication List - Last Reconciled 11/22/23 by Shanita Barber PA-C buspirone 5 mg PO BID cholecalciferol (vitamin D3) 25 mcg PO DAILY desog-e.estradiol/e.estradiol 0.15-0.02 mgx21 /0.01 mg x 5 (Viorele (28)) 1 tab PO DAILY multivitamin 1 tab PO DAILY sertraline 100 mg PO Tobacco use date assessed: 11/22/23 Dental Screening Dental Screen Date: 11/22/23 Did you have a dental visit in the last 12 months?: Yes Did you have a dental problem in the last 6 months where you did not have access to dental care?: No Was dental information given to patient?: Patient has dentist HPI SHARON Ashford patient/PE HPI0 Details 23-year-old female with past medical his tory cerebral palsy, diplegic, autism, anxiety and depression last seen by nurse practitioner coming in for a nnual exam. Patient presents today with her mother. She mentions when she was a child she had a brain bleed grade 3 bilateral and has a history of cerebral palsy previously followed by Neurology as a pediatric. She does mentioned her memory has been worsening over the last several months and now often ask the same questions multiple times per day. She regularly sees a psychiatrist in [facility] and is on sertraline and BuSpar which has been helping with her anxiety but still does continue to have anxiety occasionally. She also mentions weight gain but does not regularly exercise. She sees Gynecology through [facility] and was [place] and has not had routine Pap smears due to not being sexually active. [facility] Medical History Depression Cerebral hemorrhage Hx of premature delivery Autism Surgical History Hx of eye surgery Family History Maternal Grandfather HTN (hypertension) Prostate cancer Colon polyp Maternal Grandmother Colon cancer Paternal Grandfather Type 2 diabetes mellitus Alzheimer disease Maternal Grandmother Lung cancer HTN (hypertension) Breast cancer Mother Hodgkins lymphoma Father Type 2 diabetes mellitus HTN (hypertension) Other Mental health disorder Social History Housing: House Alcohol intake: never Patient Tobacco Use Status: Never used Tobacco Tobacco use type: Cigarette e-Cigarette/Vaping Use: Never Used Second Hand Smoke Exposure: No service: No Current occupational status: disabled Cognitive needs: No Hearing needs: No Vision needs: Yes (Glasses) Female Reproductive History Menstrual control method: pills Questionnaire PHQ-9 Over the last 2 weeks, how often have you been bothered by any of the following problems? 1. Little interest or pleasure in doing things: not at all 2. Feeling down, depressed, or hopeless: several days 3. Trouble falling or staying asleep, or sleeping too much: more than half the days 4. Feeling tired or having little energy: more than half the days 5. Poor appetite or overeating: more than half the days 6. Feeling bad about yourself - or that you are a failure or have let yourself or your family down: more than half the days 7. Trouble concentrating on things, such as reading the newspaper or watching television: nearly every day 8. Moving or speaking so slowly that other people could have noticed. Or the opposite - being so fidgety or restless that you have been moving around a lot more than usual: not at all 9. Thoughts that you would be better off or of hurting yourself in some way: not at all Total score: 12 Depression Screening Interpretation: Positive Depression Screening Follow-up: Existing condition and In treatment Depression Screening Done: Yes 24748 - PHQ-9 Billing: Yes Source: Developed by Drs. Timo Flynn, Jenelle Galloway, Aravind Matson and colleagues, with an educational nirmala from [employer]. Thrive Questionnaire Date Thrive assessed: 11/20/23 I am a: Patient What is your living situation today?: I have a steady place to live Within the past 12 months, did the food you bought not last and you didn't have the money to get more?: Never true Within the past 12 months, did you worry whether your food would run out before you got money to buy more?: Never true Do you have trouble paying for medicines?: No Do you have trouble getting transportation to medical appointments?: No Do you have trouble paying your heating and electricity bill?: No Do you have trouble taking care of your child, family member or friend?: I choose not to answer this question Do you have trouble with day-to-day activities such as bathing, preparing meals, shopping, managing finances, etc.?: Yes Are you currently unemployed and looking for a job?: I choose not to answer this question Are you interested in more education?: I choose not to answer this question Please select the resources that you would like help with: None Currently or been in a relationship where the following occur: No concerns reported THRIVE Score: 0 AUDIT C Alcohol Use Questionnaire (AUDIT-C) 1. How often do you have a drink containing alcohol?: Never Total Score: 0 HOMERO-7 AMB Questionnaire HOMERO-7 Date HOMERO - 7 assessed: 11/22/23 Feeling nervous, anxious, or on edge: 3 = Nearly every day Not being able to stop or control worryin = Nearly every day Worrying too much about different things: 3 = Nearly every day Trouble relaxin = More than half the days Being so restless that it is hard to sit still: 1 = Several days Becoming easily annoyed or irritable: 1 = Several days Feeling afraid as if something awful might happen: 3 = Nearly every day Total HOMERO-7 score (0-4 normal; 5-9 mild; 10-14 moderate; 15-21 severe): 16 Source: Developed by Drs. Timo Flynn, Jenelle Galloway, Aravind Matson and colleagues, with an educational nirmala from [employer]. HOMERO-7 Assessment Billing HOMERO-7 Assessment Tool: HOMERO-7 Assessment 21040 Review of Systems Const Details: difficulty sleeping Denies body aches, Denies fatigue, Denies fever(s), Denies frequent falls, Denies headache(s) and Denies weakness Eyes Reports no additional complaints and Denies change in vision ENT Denies dysphagia, Denies dizziness, Denies facial pain, Denies headache(s), Denies nasal congestion and Denies odynophagia Card Denies chest pain, Denies syncope, Denies irregular heart rhythm, Denies leg edema, Denies lightheadedness and Denies dyspnea Resp Denies cough and Denies dyspnea GI Denies constipation, Denies dysphagia, Denies dyspepsia, Denies diarrhea, Denies nausea, Denies odynophagia and Denies vomiting Denies urinary frequency, Denies dysuria, Denies urinary hesitancy and Denies urinary urgency Musc Denies back pain and Denies myalgias Skin/Breast Reports system reviewed and no additional complaints, except as documented Neuro Denies dizziness, Denies syncope, Denies frequent falls, Denies headache(s) and Denies weakness Psych Reports as per HPI Endo Denies fatigue Physical exam (Primary Care) Vital Signs: Last Vital Signs Pulse 92 11/22/23 13:22 BP 114/72 11/22/23 13:22 Oxygen Delivery Method Room Air 11/22/23 13:22 BMI result Body Mass Index 27.6 Tobacco/Smoking Status: Tobacco use Status Tobacco use date assessed 11/22/23 11/22/23 13:28 Patient Tobacco Use Status Never used Tobacco 11/22/23 13:28 Tobacco use type Cigarette 11/22/23 13:28 e-Cigarette/Vaping Use Never Used 11/22/23 13:28 PHQ-9: PHQ-9 Score PHQ-9: Total score 12 11/22/23 13:46 Depression Screening Interpretation: Positive Depression Screening Follow-up: Existing condition and In treatment Thrive Assessment: Date of Thrive Assessment Date Thrive assessed 11/20/23 11/22/23 13:28 Currently or been in a relationship where the following occur: No concerns reported Const General: cooperative, healthy appearing, comfortable and no acute distress Orientation/consciousness: patient oriented x3 HENMT Head: Yes normocephalic Ears: hearing grossly normal bilaterally, external ears normal, TM's normal bilaterally and Abnormal EAC present excessive cerumen bilateral General nose exam: Normal external nose present Face and sinus: Yes normal facial exam and Yes sinuses nontender Mouth: Normal oral and palatal mucosa present and tongue normal Throat: Yes posterior oropharynx normal Eyes General: appearance normal, both eyes and all related structures Conjunctivae: conjunctivae normal Pupils: Equal, round and reactive pupils present EOM: EOMs intact bilaterally and No Nystagmus present Neck Neck: Yes normal visual inspection, Yes full ROM and Yes no lymphadenopathy Chest Chest palpation & inspection: normal inspection of the chest Resp Effort & Inspection: normal respiratory effort Auscultation: clear to auscultation bilaterally, no crackles, no rales, no rhonchi, no wheezes and breath sounds present Cardio Rate: regular rate Rhythm: regular rhythm Peripheral pulses: radial pulses present and dorsalis pedis present GI Inspection: Yes normal to inspection and No Abdominal wall edema Palpation (GI): Soft to palpation, not firm and nontender Auscultation: normal bowel sounds Rectal Exam - Female: deferred General: Yes no CVA tenderness Back/Spine/Pelvis Back: no CVA tenderness Skin General skin exam: no rashes or lesions noted Neuro General: patient oriented x3 Cranial nerves: Yes Equal, round and reactive pupils present, Yes Midline tongue present, Yes Ability to bilaterally elevate shoulders present and No Nystagmus present Gait exam (Neuro): Normal gait present Extrem General: Yes normal to inspection, Yes full ROM, No no pedal edema and No edema Psych Speech and movement: Normal speech and movement present Affect: normal affect Insight: Good insight present (Psych) Judgement: Good judgement present (Psych) Office Procedures Cerumen Removal From which ear canal was the cerumen removed: bilateral Removal: cerumen loop/spoon Notes: patient tolerated procedure well, no complications and ear canal clear [id number] Wax Removal by Spoon/Curette Assessment and Plan Assessment & Plan (1) Anxiety: Code(s): F41.9 - Anxiety disorder, unspecified Plan: Continue to follow with psychiatry for current medications. Feels her symptoms are well managed at this time. (2) Cerebral palsy: Code(s): G80.9 - Cerebral palsy, unspecified Plan: Referral to neurology placed for routine follow up. (3) Annual physical exam: Code(s): Z00.00 - Encounter for general adult medical examination without abnormal findings Plan: Patient is up-to-date on all recommended routine screenings and vaccinations for her age. Ordered for updated blood work and we will follow up in 3 months for follow up on medications. (4) Memory impairment: Code(s): R41.3 - Other amnesia Plan: Patient's mother mentions she is frequently asking similar questions multiple times per day and has been very forgetful. Patient mentions this has been ongoing issue for the last several months. Referral to Neurology placed for routine follow up for cerebral palsy and memory impairment. (5) Insomnia: Code(s): G47.00 - Insomnia, unspecified Plan: Patient has difficulty sleeping often finds she can not quiet her mind before bed and will wake up several times at night. She has taken melatonin in the past without good relief. Advised patient to use hydroxyzine as needed for sleep. Follow up in 3 months. Plan This note was constructed using voice recognition software. While every effort has been made to ensure accuracy and folder hand, still areas may have been included sometimes these areas may affect the content or meeting of the given symptoms. Total time spent caring for the patient today was 30 minutes. This includes time spent before the visit reviewing the chart, time spent during the visit, and time spent after the visit and documentation. Orders: Orders Complete Blood Count Auto Diff Today Z00.00 - Encounter for general adult medical examination without abnormal findings Vitamin D 25-OH (D2 and D3) Today Z00.00 - Encounter for general adult medical examination without abnormal findings Comprehensive Met. Panel Today Z00.00 - Encounter for general adult medical examination without abnormal findings Free T4 (Free Thyroxine) Today Z00.00 - Encounter for general adult medical examination without abnormal findings TSH reflex Free T4 Today Z00.00 - Encounter for general adult medical examination without abnormal findings Vitamin B12 and Folate Today Z00.00 - Encounter for general adult medical examination without abnormal findings Referrals Neurology Referral G80.9 - Cerebral palsy, unspecified, R41.3 - Other amnesia Medications: New hydroxyzine HCl 10 mg PO BEDTIME 30 tabs 0RF Coding Level of Care Code Est Pt Prev Care 18-39y(90895) Diagnoses Anxiety F41.9 Cerebral palsy G80.9 Annual physical exam Z00.00 Memory impairment R41.3 Insomnia G47.00 CPT Codes Office Procedure - CPT: 19846-Hle Wax Removal by Spoon/Curette ([id number]) Additional Codes HOMERO-7 Assessment Billing - HOMERO-7 Assessment Tool: HOMERO-7 Assessment 63938 ([id number])
== END 2023-11-22 14:09 | disposition home or self-care (01) ==
DX: Z00.00 Encounter for general adult medical examination without abnormal findings (principal); F41.9 Anxiety disorder, unspecified; G80.9 Cerebral palsy, unspecified; H61.23 Impacted cerumen, bilateral; R41.3 Other amnesia; G47.00 Insomnia, unspecified

== ENCOUNTER 2024-02-21 13:16 | Outpatient (AMB) | payer BC, SELFPAY ==
[2024-02-21 13:18] VITALS: BP 106/64; PULSE 104; O2SAT 97; BMI 28.8
--- NOTE | 2024-02-21 13:18 | MHC.PC.OV ---
Vital Signs 02/21/24 13:18 Height 5 ft 1 in Weight 152 lb 6 oz BMI 28.8 BP 106/64 Blood Pressure Location Lt brachial Position Sitting Pulse 104 H Pulse Source Pulse Oximeter Pulse Oximetry (%) 97 Oxygen Delivery Method Room Air Intake Visit Reasons: f/u medication Accompanied by: Mother Allergies No Known Allergies Allergy (Verified 02/21/24 13:22) Medication List - Last Reconciled 02/21/24 by Shanita Barber PA-C buspirone 5 mg PO BID cholecalciferol (vitamin D3) 25 mcg PO DAILY cyanocobalamin (vitamin B-12) mcg IM desog-e.estradiol/e.estradiol 0.15-0.02 mgx21 /0.01 mg x 5 ([place] (28)) 1 tab PO DAILY multivitamin 1 tab PO DAILY sertraline 100 mg PO trazodone 50 mg PO BEDTIME Tobacco use date assessed: 02/21/24 Dental Screening Dental Screen Date: 02/21/24 Did you have a dental visit in the last 12 months?: Yes Did you have a dental problem in the last 6 months where you did not have access to dental care?: No Was dental information given to patient?: Patient has dentist HPI f/u medication HPI Details 23-year-old female with past medical history of cerebral palsy, diplegia, autism, anxiety and depression last seen October 2023 coming in for follow up.? At her last visit she was referred to Neurology for evaluation of memory impairment and cerebral palsy and started on the hydroxyzine as needed for sleep. Patient presents today with her mom. They saw Neurology at the end of December and was started on B12 injections for low B12. Her neurologist feels her memory impairment is likely due to lack of sleep. She has been using the trazodone for sleep which has been prescribed by her psychiatrist which he finds helpful however feels she still has difficulty sleeping and wakes up tired morning. She was previously using hydroxyzine as needed but was discontinued by her psychiatrist. She has no other concerns today [facility] Medical History Depression Cerebral hemorrhage Hx of premature delivery Autism Surgical History Hx of eye surgery Family History Maternal Grandfather HTN (hypertension) Prostate cancer Colon polyp Maternal Grandmother Colon cancer Paternal Grandfather Type 2 diabetes mellitus Alzheimer disease Maternal Grandmother Lung cancer HTN (hypertension) Breast cancer Mother Hodgkins lymphoma Father Type 2 diabetes mellitus HTN (hypertension) Other Mental health disorder Social History Housing: House Alcohol intake: never Patient Tobacco Use Status: Never used Tobacco Tobacco use type: Cigarette e-Cigarette/Vaping Use: Never Used Second Hand Smoke Exposure: No service: No Current occupational status: disabled Cognitive needs: No Hearing needs: No Vision needs: Yes (Glasses) Questionnaire PHQ-9 Over the last 2 weeks, how often have you been bothered by any of the following problems? 1. Little interest or pleasure in doing things: not at all 2. Feeling down, depressed, or hopeless: several days 3. Trouble falling or staying asleep, or sleeping too much: more than half the days 4. Feeling tired or having little energy: more than half the days 5. Poor appetite or overeating: more than half the days 6. Feeling bad about yourself - or that you are a failure or have let yourself or your family down: more than half the days 7. Trouble concentrating on things, such as reading the newspaper or watching television: nearly every day 8. Moving or speaking so slowly that other people could have noticed. Or the opposite - being so fidgety or restless that you have been moving around a lot more than usual: not at all 9. Thoughts that you would be better off or of hurting yourself in some way: not at all Total score: 12 Depression Screening Interpretation: Positive Depression Screening Follow-up: Existing condition and In treatment Depression Screening Done: Yes 22660 - PHQ-9 Billing: Yes Source: Developed by Drs. Timo Flynn, Jenelle Galloway, Aravind Matson and colleagues, with an educational nirmala from [employer]. Thrive Questionnaire Date Thrive assessed: 02/21/24 I am a: Patient What is your living situation today?: I have a steady place to live Within the past 12 months, did the food you bought not last and you didn't have the money to get more?: Never true Within the past 12 months, did you worry whether your food would run out before you got money to buy more?: Never true Do you have trouble paying for medicines?: No Do you have trouble getting transportation to medical appointments?: No Do you have trouble paying your heating and electricity bill?: No Do you have trouble taking care of your child, family member or friend?: I choose not to answer this question Do you have trouble with day-to-day activities such as bathing, preparing meals, shopping, managing finances, etc.?: Yes Are you currently unemployed and looking for a job?: I choose not to answer this question Are you interested in more education?: I choose not to answer this question Please select the resources that you would like help with: None Currently or been in a relationship where the following occur: No concerns reported THRIVE Score: 0 AUDIT C Alcohol Use Questionnaire (AUDIT-C) 1. How often do you have a drink containing alcohol?: Never 3. How often do you have six or more drinks on one occasion?: Never Total Score: 0 HOMERO-7 AMB Questionnaire HOMERO-7 Date HOMERO - 7 assessed: 02/21/24 Feeling nervous, anxious, or on edge: 3 = Nearly every day Not being able to stop or control worryin = Nearly every day Worrying too much about different things: 3 = Nearly every day Trouble relaxin = More than half the days Being so restless that it is hard to sit still: 1 = Several days Becoming easily annoyed or irritable: 1 = Several days Feeling afraid as if something awful might happen: 3 = Nearly every day Total HOMERO-7 score (0-4 normal; 5-9 mild; 10-14 moderate; 15-21 severe): 16 Source: Developed by Drs. Timo Flynn, Jenelle Galloway, Aravind Matson and colleagues, with an educational nirmala from [employer]. HOMERO-7 Assessment Billing HOMERO-7 Assessment Tool: HOMERO-7 Assessment 39942 Review of Systems Const Denies body aches, Denies chills, Denies fever(s) and Denies poor appetite Card Denies chest pain, Denies syncope, Denies edema, Denies irregular heart rhythm, Denies lightheadedness and Denies dyspnea Resp Denies cough and Denies dyspnea GI Denies abdominal pain, Denies constipation, Denies diarrhea, Denies nausea and Denies vomiting Reports no additional complaints Musc Reports no additional complaints and Denies abnormal gait Skin/Breast Reports system reviewed and no additional complaints, except as documented Neuro Denies abnormal gait and Denies syncope Psych Reports no additional complaints Physical exam (Primary Care) Tobacco/Smoking Status: Tobacco use Status Tobacco use date assessed 11/22/23 11/22/23 13:28 Patient Tobacco Use Status Never used Tobacco 11/22/23 13:28 Tobacco use type Cigarette 11/22/23 13:28 e-Cigarette/Vaping Use Never Used 11/22/23 13:28 Depression Screening Interpretation: Positive Depression Screening Follow-up: Existing condition and In treatment Thrive Assessment: Date of Thrive Assessment Date Thrive assessed 11/20/23 11/22/23 13:28 Currently or been in a relationship where the following occur: No concerns reported Const General: cooperative, healthy appearing, comfortable and no acute distress Orientation/consciousness: patient oriented x3 HENMT Head: Yes normocephalic Ears: hearing grossly normal bilaterally General nose exam: Normal external nose present Eyes General: appearance normal, both eyes and all related structures Conjunctivae: conjunctivae normal Neck Neck: Yes full ROM and Yes no lymphadenopathy Resp Effort & Inspection: normal respiratory effort Auscultation: clear to auscultation bilaterally, no crackles, no rales, no rhonchi and no wheezes Cardio Rate: regular rate Rhythm: regular rhythm Skin General skin exam: no rashes or lesions noted Neuro General: patient oriented x3 Gait exam (Neuro): Normal gait present Extrem General: Yes normal to inspection, Yes full ROM and No edema Psych Affect: normal affect Attitude: cooperative Insight: Good insight present (Psych) Judgement: Good judgement present (Psych) Coding Level of Care Code Est Pt Level 3 (66691) Diagnoses Insomnia G47.00 Memory impairment R41.3 Anxiety F41.9 Cerebral palsy G80.9 B12 deficiency E53.8 Additional Codes HOMERO-7 Assessment Billing - HOMERO-7 Assessment Tool: HOMERO-7 Assessment 09557 ([id number]) PHQ-9 - 21667 - PHQ-9 Billing: Yes ([id number]) Assessment & Plan Assessment & Plan (1) Insomnia: Code(s): G47.00 - Insomnia, unspecified Category: Medical Plan: Continue on trazodone as prescribed by psychiatrist. Advised patient to reach out psychiatrist to see if an increase would be appropriate to treat her insomnia. (2) Memory impairment: Code(s): R41.3 - Other amnesia Category: Medical Plan: Patient reports neurology believes this may be due to lack of sleep. Sleep study was ordered. We will request the notes from neurologist. (3) Anxiety: Code(s): F41.9 - Anxiety disorder, unspecified Category: Medical Plan: Patient having anxiety treated with trazodone, sertraline and BuSpar. Currently following with psychiatrist (4) Cerebral palsy: Code(s): G80.9 - Cerebral palsy, unspecified Category: Medical Plan: Seen by Neurology we will request the notes (5) B12 deficiency: Code(s): E53.8 - Deficiency of other specified B group vitamins Category: Medical Plan: Currently on B12 injections we will have repeat B12 lab in 1 month. Plan This note was constructed using voice recognition software. While every effort has been made to ensure accuracy and drupal web developer, still areas may have been included sometimes these areas may affect the content or meeting of the given symptoms. Total time spent caring for the patient today was 20 minutes. This includes time spent before the visit reviewing the chart, time spent during the visit, and time spent after the visit and documentation. Orders: Orders RT home sleep study Today G47.00 - Insomnia, unspecified, G47.10 - Hypersomnia, unspecified
== END 2024-02-21 13:50 | disposition home or self-care (01) ==
DX: G47.00 Insomnia, unspecified (principal); R41.3 Other amnesia; F41.9 Anxiety disorder, unspecified; G80.9 Cerebral palsy, unspecified; E53.8 Deficiency of other specified B group vitamins

== ENCOUNTER → 2024-02-21 13:16 | Outpatient (BNVA) | payer BC, SELFPAY | DX: G47.00 Insomnia, unspecified (principal); R41.3 Other amnesia; F41.9 Anxiety disorder, unspecified; G80.9 Cerebral palsy, unspecified; E53.8 Deficiency of other specified B group vitamins | CPT/HCPCS: 96127 ==